=== PATIENT | male | born 1990 | race Caucasian/White ===

== ENCOUNTER 2017-01-09 19:20 | Emergency (ER) | payer SELFPAY ==
[~2017-01-09 19:20] MED LIST: PRED10 PO; VALT1TAB26 PO
[2017-01-09 19:51] VITALS: BP 165/101; PULSE 76; RESP 20; TEMP 98.1; O2SAT 96
[2017-01-09] MEDS ORDERED: OFLO1SOL LEFT EAR (20:10)
--- NOTE | 2017-01-09 20:12 | PD ---
HPI Chief Complaint: ENT Complaint Time Seen by Provider: 20:05 Travel History International Travel<30 days: No Contact w/Intl Traveler<30days: No Traveled to known affect area: No History of Present Illness HPI 26-year-old male presents emergency department for evaluation of left ear pain and drainage 3 days. Patient reports the pain as constant, nonradiating, no aggravating or alleviating factors, severity 5 out of 10. He denies fever, chills. He has no other medical complaint. [facility] Past Medical History Medical History: Denies Significant Hx Social History Alcohol Use: Yes (OCC) Tobacco Use: No Substance Use: No Allergies-Medications (Allergen,Severity, Reaction): Coded Allergies: No Known Allergies (Verified , 01/09/17) Reported Meds & Prescriptions Reported Meds & Active Scripts Active No Active Prescriptions or Reported Medications Review of Systems Except as stated in HPI: all other systems reviewed are Neg HENT: Positive: Earache Physical Exam Narrative GENERAL: Well-nourished, well-developed patient. SKIN: Focused skin assessment warm/dry. HEAD: Normocephalic. EYES: No scleral icterus. No injection or drainage. EARS: Left ear: Mild canal swelling with yellow exudate within the canal obscuring the tympanic membrane. No mastoid tenderness. NECK: Supple, trachea midline. No JVD or lymphadenopathy. CARDIOVASCULAR: Regular rate and rhythm without murmurs, gallops, or rubs. RESPIRATORY: Breath sounds equal bilaterally. No accessory muscle use. GASTROINTESTINAL: Abdomen soft, non-tender, nondistended. MUSCULOSKELETAL: No cyanosis, or edema. BACK: Nontender without obvious deformity. No CVA tenderness. Data Data Last Documented VS Vital Signs Date Time Temp Pulse Resp B/P Pulse Ox O2 Delivery O2 Flow Rate FiO2 01/09/17 19:51 98.1 76 20 165/101 96 MDM Medical Decision Making Medical Screen Exam Complete: Yes Emergency Medical Condition: Yes Differential Diagnosis Otitis externa, otitis media with effusion, Narrative Course 26-year-old male with a three-day history of left ear pain and drainage. On exam patient has mild canal swelling with yellow exudate consistent with otitis externa patient will be treated as such. Diagnosis Primary Impression: Otitis externa Qualified Code: H60.502 - Acute otitis externa of left ear, unspecified type Referrals: [facility] Departure Forms: Tests/Procedures, Work Release Enter return to work date: Jan 10, 2017 Scripts Ofloxacin Otic (Floxin Otic)0.3 % Sol10 Drop LEFT EAR DAILY #1 BOTTLE Ref 0 Prov:Bina Sosa 01/09/17 Disposition: 01 DISCHARGE HOME Condition: Stable Bina Sosa Jan 09, 2017 20:12
== END 2017-01-09 20:19 | disposition home or self-care (01) ==
LOC: PHEFT 19:20
DX: H60.92 Unspecified otitis externa, left ear (principal)
CPT/HCPCS: 99283

== ENCOUNTER 2017-03-06 16:43 | Emergency (ER) | payer MEDICAID ==
[~2017-03-06] VITALS: Ht 177.8 cm; Wt 132.4 kg
[~2017-03-06 16:43] MED LIST changes: +OFLO1SOL LEFT EAR; -PRED10 PO; -VALT1TAB26 PO
[2017-03-06 16:54] VITALS: BP 174/76; PULSE 80; RESP 15; TEMP 98.1; O2SAT 98
[2017-03-06] MEDS ORDERED: SODIUM CHLOR 0.9% 1000 ML INJ 1,000 ML IV ONE (17:27)
[2017-03-06] MEDS ORDERED: SODIUM CHLORIDE 0.9% FLUSH 10 ML FLUSH IVF PRN (17:30)
[2017-03-06] MEDS ORDERED: ONDANSETRON HCL 4 MG/2 ML VIAL IV PUSH ONE (17:30)
[2017-03-06 17:40] LABS: AUTOMATED NEUTROPHIL # 6.9 TH/MM3 (1.8-7.7); BASOPHIL % 0.4 % (0.0-2.0); EOSINOPHIL # 0.5 TH/MM3 (0-0.4); EOSINOPHIL % 5.3 % (0.0-4.0); HEMATOCRIT 45.4 % (39.0-51.0); HEMO FLAGS DIFF FINAL; LYMPH % 18.1 % (9.0-44.0); LYMPHOCYTE # 1.8 TH/MM3 (1.0-4.8); MEAN CELL VOLUME 87.2 FL (80.0-100.0); MEAN CORPUSCULAR HEMOGLOBIN 29.2 PG (27.0-34.0); MEAN CORPUSCULAR HGB CONC 33.5 % (32.0-36.0); MONO % 5.3 % (0.0-8.0); NEUT % 70.9 % (16.0-70.0); PLATELET COUNT 268 TH/MM3 (150-450); RED BLOOD COUNT 5.21 MIL/MM3 (4.50-5.90); RED CELL DISTRIBUTION WIDTH 12.7 % (11.6-17.2); WHITE BLOOD COUNT 9.7 TH/MM3 (4.0-11.0)
[2017-03-06 17:52] LABS: CHLORIDE 105 MEQ/L (98-107); SODIUM (NA) 140 MEQ/L (136-145)
[2017-03-06 17:57] LABS: APTT (PATIENT) 29.9 SEC (24.3-30.1); PROTHROMBIN TIME - PATIENT 10.8 SEC (9.8-11.6)
[2017-03-06 17:58] LABS: ANION GAP 9 MEQ/L (5-15); BLOOD UREA NITROGEN 6 MG/DL (7-18)
--- NOTE | 2017-03-06 17:58 | PD ---
HPI Chief Complaint: Dizziness Time Seen by Provider: 17:06 Travel History International Travel<30 days: No Contact w/Intl Traveler<30days: No Traveled to known affect area: No History of Present Illness HPI Patient is a 26-year-old male who comes in complaining of lightheadedness and shaking of his arm. This is been going on for the past week. He says periodically he gets random twitching of both of his arms. He says it comes on randomly taken last a few minutes or an hour. He denies any pain. He denies any shortness of breath. Denies nausea or vomiting. He says that last year he had an episode where his right arm kept making a swinging motion, but he never got an answer as to why this was happening. He has not had any fever or chills. He denies any head trauma. PFSH Past Medical History Medical History: Denies Significant Hx Diminished Hearing: No Tetanus Vaccination: Unknown Influenza Vaccination: No ?: Not Past Surgical History Surgical History: No Previous Surgery Social History Alcohol Use: Yes ([facility]) Tobacco Use: No (quit 1.5 years ago) Substance Use: No Allergies-Medications (Allergen,Severity, Reaction): Coded Allergies: No Known Allergies (Verified , 03/06/17) Reported Meds & Prescriptions Reported Meds & Active Scripts Active Review of Systems Except as stated in HPI: all other systems reviewed are Neg General / Constitutional: No: Fever, Chills Eyes: No: Blurred Vision HENT: Positive: Lightheadedness, No: Headaches Cardiovascular: No: Chest Pain or Discomfort Respiratory: No: Shortness of Breath Gastrointestinal: No: Nausea, Vomiting, Abdominal Pain Musculoskeletal: No: Edema, Pain Skin: No Rash, No Change in Pigmentation Physical Exam Narrative GENERAL: Awake and alert, in no acute distress. SKIN: Focused skin assessment warm/dry. HEAD: Atraumatic. Normocephalic. EYES: Pupils equal and round and reactive. No scleral icterus. Extraocular movements intact. ENT: Mucous membranes pink and moist. NECK: Trachea midline. No JVD. CARDIOVASCULAR: Regular rate and rhythm. No murmur appreciated. RESPIRATORY: No accessory muscle use. Clear to auscultation. Breath sounds equal bilaterally. GASTROINTESTINAL: Abdomen soft, non-tender, nondistended. MUSCULOSKELETAL: No obvious deformities. No clubbing. No cyanosis. No edema. NEUROLOGICAL: Awake and alert. No obvious cranial nerve deficits. Motor grossly within normal limits. Normal speech. PSYCHIATRIC: Appropriate mood and affect; insight and judgment normal. Data Data Last Documented VS Vital Signs Date Time Temp Pulse Resp B/P (MAP) Pulse Ox O2 Delivery O2 Flow Rate FiO2 03/06/17 18:18 18 99 Room Air 03/06/17 16:54 98.1 80 174/76 (108) Orders Orders Electrocardiogram (03/06/17 17:27) Complete Blood Count With Diff (03/06/17 17:27) Comprehensive Metabolic Panel (03/06/17 17:27) Troponin I (03/06/17 17:27) Act Partial Throm Time (Ptt) (03/06/17 17:27) Prothrombin Time / Inr (Pt) (03/06/17 17:27) Ct Brain W/O Iv Contrast(Rout) (03/06/17 17:27) Ecg Monitoring (03/06/17 17:27) Iv Access Insert/Monitor (03/06/17 17:27) Oximetry (03/06/17 17:27) Sodium Chloride 0.9% Flush (Ns Flush) (03/06/17 17:30) Sodium Chlor 0.9% 1000 Ml Inj (Ns 1000 M (03/06/17 17:27) Ondansetron Inj (Zofran Inj) (03/06/17 17:30) Drug Screen, Random Urine (03/06/17 17:27) Labs Laboratory Tests Test 03/06/17 17:20 03/06/17 17:45 White Blood Count 9.7 TH/MM3 Red Blood Count 5.21 MIL/MM3 Hemoglobin 15.2 GM/DL Hematocrit 45.4 % Mean Corpuscular Volume 87.2 FL Mean Corpuscular Hemoglobin 29.2 PG Mean Corpuscular Hemoglobin Concent 33.5 % Red Cell Distribution Width 12.7 % Platelet Count 268 TH/MM3 Mean Platelet Volume 9.3 FL Neutrophils (%) (Auto) 70.9 % Lymphocytes (%) (Auto) 18.1 % Monocytes (%) (Auto) 5.3 % Eosinophils (%) (Auto) 5.3 % Basophils (%) (Auto) 0.4 % Neutrophils # (Auto) 6.9 TH/MM3 Lymphocytes # (Auto) 1.8 TH/MM3 Monocytes # (Auto) 0.5 TH/MM3 Eosinophils # (Auto) 0.5 TH/MM3 Basophils # (Auto) 0.0 TH/MM3 CBC Comment DIFF FINAL Differential Comment Prothrombin Time 10.8 SEC Prothromb Time International Ratio 1.0 RATIO Activated Partial Thromboplast Time 29.9 SEC Blood Urea Nitrogen 6 MG/DL Creatinine 1.00 MG/DL Random Glucose 90 MG/DL Total Protein 8.2 GM/DL Albumin 4.0 GM/DL Calcium Level 8.7 MG/DL Alkaline Phosphatase 65 U/L Aspartate Amino Transf (AST/SGOT) 26 U/L Alanine Aminotransferase (ALT/SGPT) 39 U/L Total Bilirubin 0.3 MG/DL Sodium Level 140 MEQ/L Potassium Level 4.0 MEQ/L Chloride Level 105 MEQ/L Carbon Dioxide Level 26.0 MEQ/L Anion Gap 9 MEQ/L Estimat Glomerular Filtration Rate 89 ML/MIN Troponin I LESS THAN 0.02 NG/ML Urine Opiates Screen NEG Urine Barbiturates Screen NEG Urine Amphetamines Screen NEG Urine Benzodiazepines Screen NEG Urine Cocaine Screen NEG Urine Cannabinoids Screen NEG MDM Medical Decision Making Medical Screen Exam Complete: Yes Emergency Medical Condition: Yes Medical Record Reviewed: Yes Interpretation(s) ECG shows normal sinus rhythm at 73, no ST elevation or depression, normal intervals. Differential Diagnosis Electrolyte abnormality versus dehydration versus partial seizure Narrative Course Patient is a 26-year-old male comes in complaining of lightheadedness as well as episodes of shaking of his arms. Exam shows no acute abnormalities. IV established, labs sent. The nurses in with the patient, he began to have an episode of shaking of his arms. When I went into the patient, I lift his arm above his head and as soon as I touch his arm, the shaking stopped, but when I put it back down, the shaking continued. Patient was obviously using his muscles against me when I lifted his arm, he had control of his arms the entire time. Patient was not observed to have any further episodes on the emergency department. Labs show no acute abnormalities. CT of the head shows no acute abnormalities. Patient advised to take decongestants for the fluid in his sinuses. Mandatory referral placed to neurology. He is advised follow-up with neurology. Advised to return to the ED as needed for any worsening symptoms. Diagnosis Primary Impression: Dizziness Referrals: Heath Johns MD call for appointment Patient Instructions: Dizziness (ED), General Instructions Additional Instructions: Drink plenty of fluids. Try [id number] decongestants. Follow up with neurology. Return to the ED as needed for any worsening symptoms. Disposition: 01 DISCHARGE HOME Condition: Stable Lindsey Morales MD Mar 06, 2017 17:58
[2017-03-06 18:01] LABS: ALT (GPT) 39 U/L (12-78); AST (GOT) 26 U/L (15-37); GLOMERULAR FILTRATION RATE 89 ML/MIN (>89)
[2017-03-06 18:02] LABS: TOTAL BILIRUBIN ADULT 0.3 MG/DL (0.2-1.0)
[2017-03-06 18:03] LABS: ALKALINE PHOSPHATASE 65 U/L (45-117)
[2017-03-06 18:18] VITALS: RESP 18; O2SAT 99
--- NOTE | 2017-03-06 19:38 | RADRPT ---
EXAM DATE/TIME: 03/06/2017 18:41 [place] COMPARISON: No previous studies available for comparison. INDICATIONS : Lightheaded. Dizziness. RADIATION DOSE: 64.49 CTDIvol (mGy) MEDICAL HISTORY : None SURGICAL HISTORY : None. ENCOUNTER: Initial ACUITY: 1 week PAIN SCALE: 0/10 LOCATION: cranial TECHNIQUE: Multiple contiguous axial images were obtained of the head. Using automated exposure control and adj ustment of the mA and/or kV according to patient size, radiation dose was kept as low as reasonably a chievable to obtain optimal diagnostic quality images. DICOM format image data is available electro nically for review and comparison. FINDINGS: CEREBRUM: The ventricles are normal. There is anterior falx cerebri calcification. No evidence of midline shif t, mass lesion, hemorrhage or acute infarction. No extra-axial fluid collections are seen. POSTERIOR FOSSA: The cerebellum and brainstem demonstrate no acute finding. The 4th ventricle is midline. The cerebe llopontine angle is unremarkable. EXTRACRANIAL: There is opacification of the left frontal sinus. Remaining visualized sinuses are clear. SKULL: The calvaria is intact. No evidence of skull fracture. CONCLUSION: 1. No acute intracranial abnormality is identified. 2. Opacification of the left frontal sinus. Medhat Paredes MD on March 06, 2017 at 19:32 Board Certified Radiologist. This report was verified electronically.
[2017-03-06 19:58] VITALS: BP 164/76
--- NOTE | 2017-03-07 19:50 | EKG ---
Date Performed: 03/06/2017 Time Performed: 17:36:34 PTAGE: 26 years EKG: Sinus rhythm WITH SINUS ARRHYTHMIA NORMAL ECG NO PREVIOUS TRACING DOCTOR: Mikal Palacios Interpretating Date/Time 03/07/2017 19:49:55
== END 2017-03-06 20:08 | disposition home or self-care (01) ==
LOC: PHED 16:43
DX: R42 Dizziness and giddiness (principal); R25.3 Fasciculation
CPT/HCPCS: 70450; 80053; 80307; 84484; 85025; 85610; 85730; 93005; 96361; 96374; 99285; J2405; J7030